=== PATIENT | female | born 1995 | race African-American/Black ===

== ENCOUNTER 2016-06-26 13:40 | Emergency (ER) | payer MEDICAID ==
[~2016-06-26 13:40] MED LIST: ALBUTEROL; AMOXICILLIN875 M1 PO; ANTIBIOTIC; AUGMENTIN 875-1 EAC2 PO; BACTRIM DS TAB1 EAC2 PO; BIRTH CONTROL IMPLAN; CETIRIZINE; CLOBETASOL PROP15 G1; COMPAZINE10 MG PO; DULERA; DULERA 200 MCG/13 G1 INH; HYDROCODON-ACE1 EA16 PO; LORTAB 5-325 M1 EAC1 PO; MACROBID 100 M100 M1 PO; NEURONTIN300 M1 PO; NIZORAL A-D200 ML; NORCO 5-325 TA1 EACH PO; NUVARING VAGIN1 EACH VG; PENICILLIN V P500 M1 PO; PROVENTIL HFA6.7 G1 IH; PROVERA10 M1 PO; SPRINTEC 28 DA1 EACH PO; STEROID INH; SYMBICORT; SYMBICORT 80-41 PUFF INH; SYNTHROID PO; TOBREX5 M1 OP; TRAMADOL HCL50 M2 PO; ULTRAM50 M1 PO; VENTOLIN HFA18 G2 PO; ZOFRAN4 M2 PO
[2016-06-26] MEDS ORDERED: LEVOTHYROXINE PO (14:06)
[2016-06-26] MEDS ORDERED: ZOLOFT PO (14:07)
[2016-06-26 15:38] LABS: BASO % 0.5 % (0-2); BASO ABSOLUTE COUNT 0.1 tho/cmm (0.0-0.2); EOS % 1.8 % (0-7); EOSINOPHIL ABSOLUTE COUNT 0.2 tho/cmm (0.0-0.7); HCT-HEMATOCRIT 36.5 % (34.0-49.0); HGB-HEMOGLOBIN 11.5 gm/dl (12.0-15.5); IMMATURE GRANULOCYTES ABSOLUTE 0.03 tho/cmm (0-0.03); IMMATURE GRANULOCYTES PERCENT 0.3 % (0-0.3); LYMPH % 26.3 % (20-45); LYMPH ABSOLUTE COUNT 2.7 tho/cmm (0.8-4.5); MCH (MEAN CORPUSCULAR HGB) 23.6 pg (28.0-32.0); MCHC MEAN CORPUSCULAR HGB CONC 31.5 % (32.0-36.0); MCV (MEAN CELL VOLUME) 74.8 fl (82.0-96.0); MONO % 6.5 % (0-12); MONOCYTE ABSOLUTE COUNT 0.7 tho/cmm (0.0-1.2); NEUTROPHIL ABSOLUTE COUNT 6.6 tho/cmm (1.6-8.0); NEUTROPHIL-AUTOMATED 6.6 tho/cmm (1.6-8.0); NEUTROPHILS % 64.6 % (40-80); PLATELET COUNT 369 tho/cmm (150-450); RED BLOOD COUNT 4.88 mil/cmm (4.00-5.20); RED CELL DISTRIBUTION WIDTH 14.3 % (12.4-16.4); WHITE BLOOD COUNT 10.2 tho/cmm (4.0-10.0)
[2016-06-26 15:57] LABS: ANION GAP 11 mmol/L (0-20); BLOOD UREA NITROGEN 6 mg/dl (6-24); CALCIUM 8.7 mg/dl (8.5-10.5); CARBON DIOXIDE-VENOUS 28 mmol/L (22-32); CHLORIDE 108 mmol/l (96-110); CREATININE 0.92 mg/dl (0.50-1.10); GLUCOSE 112 mg/dL (70-110); POTASSIUM 4.4 mmol/L (3.7-5.1); PREGNANCY-SERUM NEGATIVE (NEGATIVE); SODIUM 143 mmol/L (135-145); eGFR VALUE FOR BLACK >90 mL/Min
[2016-06-26] MEDS ORDERED: ROBITUSSIN COU118 M7 PO (16:22)
[2016-11-28] MEDS ORDERED: HYDROCODON-ACE1 EA16 PO (16:28)
[2016-11-28] MEDS ORDERED: NEURONTIN300 M1 PO (16:29)
== END 2016-06-26 16:34 ==
LOC: EDMED 13:40
PROVIDERS: Nurse Practitioner Family
DX: J06.9 Acute upper respiratory infection, unspecified (principal); R42 Dizziness and giddiness; Z98.890 Other specified postprocedural states; Z88.2 Allergy status to sulfonamides